=== PATIENT | male | born 1955 | race Caucasian/White ===

== ENCOUNTER → 2019-09-26 | Outpatient (CLI) | payer OTHER ==
--- NOTE | 2019-09-26 12:43 | CT ---
EXAMINATION TYPE: CT sinus wo con DATE OF EXAM: 09/26/2019 COMPARISON: None HISTORY: SINUS INFECTION CT DLP: [address] of the paranasal sinuses was performed in the axial and coronal planes. Bone and soft tissue settings are submitted. Images of medial maxillary antrectomy bilaterally. Mild mucosal thickening persists at the left maxil keily sinus near its base. Partial ethmoidectomy changes also appreciated with mild residual mucosal t hickening seen. Small mucous retention cyst is seen within the left-sided sphenoid sinus measuring 9 mm. Frontal sinuses are well-aerated at this time. The nasal septum is midline. No bony destructive changes are seen within the field of view. IMPRESSION: Postoperative changes as discussed with the mild changes of chronic sinusitis.
== END | disposition home or self-care (01) ==
LOC: RADCTMAIN 12:01
PROVIDERS: ATTEND Otolaryngology
DX: J32.9 Chronic sinusitis, unspecified (principal); Z98.890 Other specified postprocedural states
CPT/HCPCS: 70486